=== PATIENT | female | born 1980 | race African-American/Black ===

== ENCOUNTER 2023-04-23 12:20 | Emergency (ER) | payer OTHER, SELFPAY ==
[2023-04-23 12:37] VITALS: BP 121/80
[2023-04-23 13:09] LABS: Urine Albumin Trace (Neg - Trace); Urine Bilirubin 1+ (Negative); Urine Character Slightly Cloudy (Clear); Urine Color Yellow; Urine Glucose Negative (Negative); Urine Ketone 1+ (Negative); Urine Leukocyte Trace (Negative); Urine Nitrite Negative (Negative); Urine Occult Blood 4+ (Negative); Urine Specific Gravity 1.015 (<1.030); Urine Urobilinogen 1+ (Neg - 1+)
[2023-04-23 13:10] LABS: % Basophils 0.1 % (0-2); % Eosinophils 0.1 % (0-6); % Immature Granulocytes 0.3 % (0-0.5); % Lymphocytes 5.5 % (20.5-51.1); % Monocytes 3.1 % (1.7-9.3); % Neutrophils 90.9 % (42.2-75.2); Absolute Lymphocytes 0.7 10^3/uL (1.2-3.4); Absolute Monocytes 0.4 10^3/uL (0.1-0.6); Absolute Neutrophils 12.2 10^3/uL (1.4-6.5); Hematocrit 36.6 % (37.0-47.0); Hemoglobin 12.3 g/dL (12.0-16.0); Mean Corp Hgb Conc. 33.6 g/dL (33.0-37.0); Mean Corpuscular Hgb 27.3 pg (27.0-31.0); Mean Corpuscular Volume 81.2 fL (81.0-99.0); Mean Platelet Volume 9.5 fL (7.4-10.4); Nucleated Red Blood Cells % 0 %; Platelet Count 333 10^3/uL (130-400); Red Blood Cell Count 4.51 10^6/uL (4.20-5.40); Red Cell Dist. Width 15.9 % (11.5-14.5); White Blood Cell Count 13.5 10^3/uL (4.8-10.8)
[2023-04-23] MEDS: ZOFRAN 4 MG IV ×2 (13:14→14:12)
[2023-04-23] MEDS: NSS 1000 IV (13:16)
[2023-04-23 13:18] LABS: Urine Mucus Few; Urine Red Blood Cell 40-50 /HPF (0-2); Urine Squamous Cell >30 /LPF (Few)
[2023-04-23 13:31] LABS: HCG, Serum Qualitative Screen Negative
[2023-04-23 13:32] LABS: Lactic Acid 0.8 mmol/L (0.7-2.0)
[2023-04-23 13:33] LABS: ALT (SGPT) 84 U/L (0-35); AST (SGOT) 72 U/L (14-36); Albumin 4.4 g/dl (3.5-5.0); Alkaline Phosphatase 133 U/L (38-126); Blood Urea Nitrogen 9 mg/dl (7-17); Calcium 9.1 mg/dl (8.4-10.2); Carbon Dioxide 24 mmol/L (22-30); Chloride 102 mmol/L (98-107); Glucose 107 mg/dl (70-99); Potassium 3.3 mmol/L (3.5-5.1); Sodium 133 mmol/L (135-145); Total Bilirubin 1.2 mg/dl (0.2-1.3); Total Protein 7.9 g/dl (6.3-8.2); eGFR > 60.00
[2023-04-23 14:00] VITALS: BP 138/86
[2023-04-23 15:00] VITALS: BP 128/77
[2023-04-23 16:00] VITALS: BP 125/89
[2023-04-23] MEDS: ROCEPHIN 1000 MG IV (16:06)
--- NOTE | 2023-04-23 16:51 | ED.GENMED ---
History of Present Illness
General
Chief Complaint: Urinary Symptoms
Source: patient
Exam Limitations: none
Time Seen by Provider: 04/23/23 12:43
Travel History
Have you had any contact with someone who has COVID-19?: No
Do you have any symptoms of coronavirus? Fever > 100 degrees, chills, cough, shortness of breath, sore throat, loss of taste or smell, muscle aches, or headache?: No
History of Present Illness
History of Present Illness:
This is a 42yo who was diagnosed with a UTI yesterday. pt states that she was given bactrim and after taking a dose started vomiting. she worries she had a reaction to bactrim. she reports fevers. no diarrhea. urinary sx's seem a bit better but does
have mild L>R flank pain.
Past History
Past History
ED Past Medical History: Other (anemia, pancreatic cyst, fibromyalgia)
ED Past Surgical History: Cholecystectomy and Orthopedic
Phy Exam
Physical Exam
Physical Exam:
CONSTITUTIONAL Patient alert and oriented to person, place and time. Well-appearing. Vital signs reviewed.
HEAD atraumatic, normocephalic.
EYES eyelids normal to inspection, Pupils equally round and reactive to light, Extraocular muscles intact, Conjunctiva normal, Sclera normal.
NECK normal range of motion, Trachea midline, no jugular venous distention.
RESPIRATORY CHEST No respiratory distress noted, Chest expansion equal, Bilateral breath sounds clear.
CARDIOVASCULAR regular rate and rhythm, Heart sounds normal.
ABDOMEN abdomen nontender, Bowel sounds normal. No distention.
BACK normal inspection, no obvious deformities, scant tenderness with CVA percussion b/l
UPPER EXTREMITY range of motion normal, Motor strength normal, no cyanosis, no edema.
LOWER EXTREMITY range of motion normal, Motor strength normal, no cyanosis, no edema.
NEURO Speech normal, No focal motor deficits, [place] coma scale 15, Memory normal, Cranial Nerves intact to screening exam.
SKIN skin warm, dry, and normal in color.
PSYCHIATRIC patient oriented to person place and time, Normal affect.
Course
Orders/Labs/Results
Orders:
Orders
04/23/23 12:53
Complete Blood Count/With Diff Urgent
Comprehensive Metabolic Panel Urgent
HCG, Serum Qualitative Screen Urgent
Comment: ADD ON
Lactic Acid Q4H
Comment: CANCEL 2nd LACTIC ACID IF 1st LACTIC ACID IS LESS THAN 2
Blood Culture Q30M
LEMU[facility] Source: Blood/Venous
Specimen Description:
04/23/23 13:01
Urinalysis Reflex To Culture Urgent
Date Specimen was Collected: 04/23/23
Time Specimen was Collected: 12:49
Urine Microscopic Reflex Cult Urgent
04/23/23 13:06
CT Abd/pel Without Iv Or Oral Urgent
Comment:
Reason For Exam: L flank pain, fever
0.9% Sodium Chloride 1000 ml [Nss] 1,000 ml IV BOLUS
Ondansetron Injectable [Zofran] 4 mg IV NOW STA
04/23/23 13:12
Add On- LAB Urgent
Tests Added?: hcg
04/23/23 13:13
Acetaminophen [Tylenol] 1,000 mg .ROUTE .STK-MED ONE
04/23/23 13:39
Acetaminophen [Tylenol] 1,000 mg PO NOW STA
04/23/23 14:10
Ondansetron Injectable [Zofran] 4 mg .ROUTE .STK-MED ONE
04/23/23 14:12
Ondansetron Injectable [Zofran] 4 mg IV NOW STA
04/23/23 14:15
Blood Culture Q30M
LEMUEL Source: Blood/Venous
Specimen Description:
04/23/23 15:11
CefTRIAXone [Rocephin] 1,000 mg IV NOW STA
04/23/23 16:45
Lactic Acid Q4H
Comment: CANCEL 2nd LACTIC ACID IF 1st LACTIC ACID IS LESS THAN 2
Abnormal Lab Results
04/23/23 04/23/23
12:53 13:01
WBC 13.5 H 10^3/uL
(4.8-10.8)
Hct 36.6 L %
(37.0-47.0)
RDW 15.9 H %
(11.5-14.5)
Absolute Neuts (auto) 12.2 H 10^3/uL
(1.4-6.5)
Absolute Lymphs (auto) 0.7 L 10^3/uL
(1.2-3.4)
Neutrophils % 90.9 H %
(42.2-75.2)
Lymphocytes % 5.5 L %
(20.5-51.1)
Sodium 133 L mmol/L
(135-145)
Potassium 3.3 L mmol/L
(3.5-5.1)
Glucose 107 H mg/dl
(70-99)
AST 72 H U/L
(14-36)
ALT 84 H U/L
(0-35)
Alkaline Phosphatase 133 H U/L
(38-126)
Urine Ketones 1+ A
(Negative)
Ur Occult Blood Reflex 4+ A
(Negative)
Urine Bilirubin 1+ A
(Negative)
Leukocyte Esterase Rfl Trace A
(Negative)
Urine RBC 40-50 A /HPF
(0-2)
04/23/23 12:53
04/23/23 12:53
Vital Signs
Initial and Last Documented VS:
Initial Vital Signs
Temp Pulse Resp BP Pulse Ox
101.5 F H 109 18 121/80 100
04/23/23 12:37 04/23/23 12:37 04/23/23 12:37 04/23/23 12:37 04/23/23 12:37
Last Documented Vital Signs
Temp Pulse Resp BP Pulse Ox
101.5 F H 101 20 128/77 98
04/23/23 12:37 04/23/23 15:00 04/23/23 15:00 04/23/23 15:00 04/23/23 15:00
MDM/Problems Addressed
Differential Diagnosis Includes:
Infected kidney stone, pyelonephritis, medication reaction
MDM/Problems Addressed:
Vomiting, pyelonephritis
*Radiology
Radiology exam reviewed: preliminary read by ED provider (no free air noted) and radiology read reviewed
*Pulse Oximetry
Patient hypoxic: no
*Critical Care Note
Total Time (30-74mins, 75-104mins- exclusive of procedures): Not Applicable
Data Reviewed
Source: patient
Prescriptions/Medications Considered But Not Given:
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
Patient Management
Escalation/DeEscalation of care consider admission/obs:
42-year-old female who was started on Bactrim yesterday. Now with fever and vomiting. Suspect pyelonephritis. Does feel a little bit better. CT shows no obstruction. Given IV fluids. 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
management
ED Attending Note
-
Portions of this chart may have been created with voice recognition software.� Occasional wrong word or��sound alike� substitutions may have occurred due to the inherent limitations of voice recognition software.
Discharge Plan
Departure
Patient Disposition: Home (Routine Discharge)
Date of Disposition: 04/23/23
Time of Disposition: 16:59
Patient with high blood pressure during this ER visit?: No
Discharge Problem:
Pyelonephritis
Instructions: Kidney Infection
Prescriptions:
New
cefuroxime axetil 500 mg tablet
500 mg PO BID 7 Days Qty: 14 0RF
ondansetron 4 mg tablet,disintegrating
4 mg PO TID PRN (Reason: nausea and vomiting) Qty: 15 0RF
Referrals:
UNKNOWN - PT DOES,NOT KNOW [Family Provider] -
Activity Restrictions/Additional Instructions:
Please drink plenty fluids. Please see your doctor in the next few days for return to [facility] for intractable vomiting, persistent fevers, weakness of any kind, lightheadedness or any other concerns.
Interventions
Interventions:
*General Assessment Last Done: 04/23/23 12:37
*ED COVID-19 Vaccine History Last Done: 04/23/23 12:37
[2023-04-23] MEDS: KCL ELIXIR 40 MEQ PO (17:19)
[2023-04-23 17:54] VITALS: BP 114/59
== END 2023-04-23 17:55 | disposition home or self-care (01) ==
LOC: EMR 12:20
PROVIDERS: EMERGENCY PHYSICIAN Emergency Medicine
DX: N12 Tubulo-interstitial nephritis, not specified as acute or chronic (principal)
CPT/HCPCS: 99284; 96374; 96375; 96361; 96376; 74176; 80053; 81003; 81015; 83605; 84703; 85025; 87040

== ENCOUNTER 2023-05-30 11:12 | Emergency (ER) | payer OTHER, SELFPAY ==
[2023-05-30 11:31] VITALS: BP 114/82
[2023-05-30 11:55] LABS: % Basophils 0.5 % (0-2); % Eosinophils 0.9 % (0-6); % Immature Granulocytes 0.6 % (0-0.5); % Lymphocytes 20.4 % (20.5-51.1); % Monocytes 4.6 % (1.7-9.3); Absolute Eosinophils 0.1 10^3/uL (0-0.7); Absolute Immature Granulocytes 0.1 10^3/uL (0-0.05); Absolute Lymphocytes 1.8 10^3/uL (1.2-3.4); Absolute Monocytes 0.4 10^3/uL (0.1-0.6); Absolute Neutrophils 6.5 10^3/uL (1.4-6.5); Hematocrit 36.3 % (37.0-47.0); Hemoglobin 12.2 g/dL (12.0-16.0); Mean Corp Hgb Conc. 33.6 g/dL (33.0-37.0); Mean Corpuscular Hgb 27.1 pg (27.0-31.0); Mean Corpuscular Volume 80.5 fL (81.0-99.0); Mean Platelet Volume 9.7 fL (7.4-10.4); Nucleated Red Blood Cells % 0 %; Platelet Count 340 10^3/uL (130-400); Red Blood Cell Count 4.51 10^6/uL (4.20-5.40); White Blood Cell Count 8.8 10^3/uL (4.8-10.8)
[2023-05-30 11:58] LABS: Urine Albumin Negative (Neg - Trace); Urine Bilirubin Negative (Negative); Urine Character Clear (Clear); Urine Color Yellow; Urine Glucose Negative (Negative); Urine Ketone Negative (Negative); Urine Leukocyte Negative (Negative); Urine Nitrite Negative (Negative); Urine Occult Blood Negative (Negative); Urine Urobilinogen Negative (Neg - 1+)
[2023-05-30 12:39] LABS: ALT (SGPT) 23 U/L (0-35); AST (SGOT) 23 U/L (14-36); Albumin 4.2 g/dl (3.5-5.0); Alkaline Phosphatase 115 U/L (38-126); Blood Urea Nitrogen 12 mg/dl (7-17); Calcium 9.8 mg/dl (8.4-10.2); Carbon Dioxide 24 mmol/L (22-30); Chloride 107 mmol/L (98-107); Glucose 87 mg/dl (70-99); Sodium 137 mmol/L (135-145); Total Bilirubin 0.7 mg/dl (0.2-1.3); Total Protein 7.4 g/dl (6.3-8.2); eGFR > 60.00
--- NOTE | 2023-05-30 13:55 | ED.GENMED ---
History of Present Illness
General
Chief Complaint: Back Pain
Source: patient
Exam Limitations: none
Time Seen by Provider: 05/30/23 13:55
Nursing documentation reviewed up to this point in time: agreed with
Travel History
Have you had any contact with someone who has COVID-19?: No
Do you have any symptoms of coronavirus? Fever > 100 degrees, chills, cough, shortness of breath, sore throat, loss of taste or smell, muscle aches, or headache?: No
History of Present Illness
History of Present Illness:
42-year-old female with history of fibromyalgia, GERD presents stating she's had pain in the mid to lower back, both flanks for past 3 weeks. Denies overuse or injury. Denies CP, SOB, has had abdominal discomfort and bloating, nausea off and on, hx
of GERD and has been on PPI in the past but does not like to take medicines so she uses teas, probiotics, etc if needed.
Pt had neg CT scan abd pelvis without po or IV contrast at last visit 04/23/[address] scan WITH IV contrast for her abdominal symptoms.
Past History
Past History
ED Past Medical History: GERD and Other (anemia, pancreatic cyst, fibromyalgia)
ED Past Surgical History: Cholecystectomy and Orthopedic
Social History
Tobacco: Non-smoker
Alcohol: None
Personal:
Living: with family
Employment: Not employed
Review of Systems
Review of Systems
Allergies reviewed?: Yes
All Other Systems: ROS reviewed and negative except as documented in HPI and ROS
Constitutional: Denies fever
Respiratory: Denies trouble breathing
Cardiac: Denies chest pain
ABD/GI: Reports abdominal pain and nausea; Denies vomiting, diarrhea, bloody stools, black stools or anorexia
: Denies dysuria, frequency, difficulty voiding or urgency
Musculoskeletal: Reports back pain
Skin: Reports no symptoms
Neurological: Reports no symptoms
Phy Exam
Physical Exam
Physical Exam:
GENERAL: No acute distress. A&Ox3.
CONSTITUTIONAL: Afebrile.
RESPIRATORY: Regular respirations, nonlabored, lungs clear.
CARDIOVASCULAR: Regular rate and rhythm, no murmurs, no rubs.
GI: Soft, obese, generally tender, no guarding, normal BS
MUSCULOSKELETAL: Tender bilateral upper lumbar and lower thoracic ST. Rotation of torso while standing reproduces the back pain. Bending forward reproduces the back pain. Moves with ease. Well perfused. No edema
SKIN: Warm, dry, normal
PSYCH: Normal mood and affect. Well kept, interactive and appropriate
NEUROLOGIC: Awake, alert and oriented. No focal neurological deficits
Course
Orders/Labs/Results
Orders:
Orders
05/30/23 11:41
Complete Blood Count/With Diff Urgent
Comprehensive Metabolic Panel Urgent
HCG, Serum Qualitative Screen Urgent
Comment: SERUM HCG QUALITATIVE ADDED ON BY FLOOR 3PM 05-30-23
Urinalysis Reflex To Culture Urgent
Date Specimen was Collected: 05/30/23
Time Specimen was Collected: 11:32
05/30/23 14:38
CT Abd/pelvis W Iv Cont Urgent
Comment:
Reason For Exam: abdominal bloating, general pain.
05/30/23 14:56
Add On- LAB Urgent
Tests Added?: serum hcg qualitative
Abnormal Lab Results
05/30/23
11:41
Hct 36.3 L %
(37.0-47.0)
MCV 80.5 L fL
(81.0-99.0)
RDW 16.0 H %
(11.5-14.5)
Abs Immat Gran (auto) 0.1 H 10^3/uL
(0-0.05)
Immature Gran % 0.6 H %
(0-0.5)
Lymphocytes % 20.4 L %
(20.5-51.1)
05/30/23 11:41
05/30/23 11:41
Vital Signs
Initial and Last Documented VS:
Initial Vital Signs
Temp Pulse Resp BP Pulse Ox
98.2 F 70 14 114/82 100
05/30/23 11:31 05/30/23 11:31 05/30/23 11:31 05/30/23 11:31 05/30/23 11:31
Last Documented Vital Signs
Temp Pulse Resp BP Pulse Ox
98.2 F 76 15 127/79 100
05/30/23 11:31 05/30/23 17:40 05/30/23 14:00 05/30/23 17:40 05/30/23 11:31
MDM/Problems Addressed
Differential Diagnosis Includes:
musculoskeletal back pain, UTI, pyelonephritis
GERD, constipation, AAA
MDM/Problems Addressed:
42-year-old female with history of fibromyalgia, GERD presents stating she's had pain in the mid to lower back, both flanks for past 3 weeks. Denies overuse or injury. Denies CP, SOB, has had abdominal discomfort and bloating, nausea off and on, hx
of GERD and has been on PPI in the past but does not like to take medicines so she uses teas, probiotics, etc if needed.
Pt had neg CT scan abd pelvis without po or IV contrast at last visit 04/23/[address] scan WITH IV contrast for her abdominal symptoms. Specifically mentions pancreas cyst concern
NAD
1:55 PM
CBC normal
CMP normal
UA negative
5:[address] scan with IV contrast: Radiology report reviewed: IMPRESSION:
1. No CT evidence for an acute process in the abdomen or pelvis.
2. 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 A follow-up abdominal MRI without and with intravenous contrast can be performed on a routine
outpatient basis.
Ct results discussed with pt as well as MRI recommendation. All questions answered
Copy given to pt.
*Critical Care Note
Total Time (30-74mins, 75-104mins- exclusive of procedures): Not Applicable
ED Attending Note
-
Portions of this chart may have been created with voice recognition software.� Occasional wrong word or��sound alike� substitutions may have occurred due to the inherent limitations of voice recognition software.
Discharge Plan
Departure
Patient Disposition: Home (Routine Discharge)
Date of Disposition: 05/30/23
Time of Disposition: 17:08
Patient with high blood pressure during this ER visit?: No
Condition: Good
Discharge Problem:
Musculoskeletal back pain, Abdominal pain
Instructions: Low Back Pain (DC), Abdominal Pain, Adult ED, Musculoskeletal Pain
Prescriptions:
No Action
cefuroxime axetil 500 mg tablet
500 mg PO BID 7 Days Qty: 14 0RF
ondansetron 4 mg tablet,disintegrating
4 mg PO TID PRN (Reason: nausea and vomiting) Qty: 15 0RF
Referrals:
Your, GI doctor [Other] - Next open appointment
Tonia Bashir, DO [Family Provider] - Call in 1-3 days for appt
Activity Restrictions/Additional Instructions:
As we discussed, there is nothing worrisome in your workup here today.
See your GI doctor for the abdominal bloating
Tylenol or Ibuprofen for the back pain as it is most likely musculoskeletal pain/strain
See your Primary doctor or your GI doctor and review your CT results as out pt MRI is recommended within the next few months to further assess your pancreas cyst.
Interventions
Interventions:
*Risk Screen - Suicide Last Done: 05/30/23 11:28
*General Assessment Last Done: 05/30/23 11:28
*Neglect/Abuse Screening Last Done: 05/30/23 11:28
ED- Fall Risk Assessment Last Done: 05/30/23 14:00
*ED COVID-19 Vaccine History Last Done: 05/30/23 13:56
*Nursing Disposition Last Done: 05/30/23 17:40
ED-Musculoskeletal Assessment Last Done: 05/30/23 15:02
Discharge Date and Time
Discharge Date/Time: 05/30/23 17:40
Print Language: MAURITIAN
[2023-05-30 13:56] VITALS: BMI 34.2
[2023-05-30 14:00] VITALS: BP 125/92
[2023-05-30 15:46] LABS: HCG, Serum Qualitative Screen Negative
[2023-05-30 17:38] VITALS: BP 127/79
[2023-05-30 17:40] VITALS: BP 127/79
== END 2023-05-30 17:40 | disposition home or self-care (01) ==
LOC: EMR 11:12
PROVIDERS: Student in an Organized Health Care Education/Training Program; EMERGENCY PHYSICIAN Emergency Medicine; FAMILY PHYSICIAN Family Medicine
DX: M54.50 Low back pain, unspecified (principal); R10.9 Unspecified abdominal pain; M79.7 Fibromyalgia; K21.9 Gastro-esophageal reflux disease without esophagitis; D64.9 Anemia, unspecified; Z90.49 Acquired absence of other specified parts of digestive tract
CPT/HCPCS: 99284; 74177; 80053; 81003; 84703; 85025; Q9967

== ENCOUNTER 2024-07-25 18:08 | Emergency (ER) | payer OTHER, SELFPAY ==
[2024-07-25 18:13] VITALS: BP 136/83
[2024-07-25 18:35] LABS: % Basophils 0.4 % (0-2); % Immature Granulocytes 0.4 % (0-0.5); % Lymphocytes 22.1 % (20.5-51.1); % Monocytes 5.8 % (1.7-9.3); % Neutrophils 70.3 % (42.2-75.2); Absolute Eosinophils 0.1 10^3/uL (0-0.7); Absolute Lymphocytes 2.1 10^3/uL (1.2-3.4); Absolute Monocytes 0.6 10^3/uL (0.1-0.6); Absolute Neutrophils 6.8 10^3/uL (1.4-6.5); Hematocrit 39.8 % (37.0-47.0); Hemoglobin 12.9 g/dL (12.0-16.0); Mean Corp Hgb Conc. 32.4 g/dL (33.0-37.0); Mean Corpuscular Hgb 27.6 pg (27.0-31.0); Mean Corpuscular Volume 85.2 fL (81.0-99.0); Mean Platelet Volume 9.3 fL (7.4-10.4); Nucleated Red Blood Cells % 0 %; Platelet Count 298 10^3/uL (130-400); Red Blood Cell Count 4.67 10^6/uL (4.20-5.40); Red Cell Dist. Width 15.9 % (11.5-14.5); White Blood Cell Count 9.7 10^3/uL (4.8-10.8)
[2024-07-25 18:47] LABS: HCG, Serum Qualitative Screen Negative
[2024-07-25 18:50] LABS: ALT (SGPT) 27 U/L (0-35); AST (SGOT) 20 U/L (14-36); Albumin 4.5 g/dl (3.5-5.0); Alkaline Phosphatase 108 U/L (38-126); Blood Urea Nitrogen 9 mg/dl (7-17); Calcium 9.7 mg/dl (8.4-10.2); Carbon Dioxide 25 mmol/L (22-30); Chloride 110 mmol/L (98-107); Glucose 76 mg/dl (70-99); Lipase 89 U/L (23-300); Potassium 3.7 mmol/L (3.5-5.1); Sodium 141 mmol/L (135-145); Total Bilirubin 0.7 mg/dl (0.2-1.3); Total Protein 7.8 g/dl (6.3-8.2); eGFR > 60.00
[2024-07-25] MEDS: TORADOL 15 MG IV (20:30)
[2024-07-25] MEDS: PEPCID 20 MG IV (20:30)
[2024-07-25] MEDS: ZOFRAN 4 MG IV (20:31)
[2024-07-25 21:32] LABS: Urine Albumin 2+ (Neg - Trace); Urine Bilirubin Negative (Negative); Urine Character Clear (Clear); Urine Color Yellow; Urine Glucose Negative (Negative); Urine Ketone 2+ (Negative); Urine Leukocyte Negative (Negative); Urine Nitrite Negative (Negative); Urine Occult Blood Negative (Negative); Urine Urobilinogen Negative (Neg - 1+)
[2024-07-25 21:40] LABS: Urine Squamous Cell >30 /LPF (Few)
[2024-07-25 21:41] LABS: Urine Bacteria Few (Negative); Urine Red Blood Cell 0-2 /HPF (0-2); Urine White Cell 0-2 /HPF (0-5)
[2024-07-25 22:09] VITALS: BP 132/86
--- NOTE | 2024-07-25 22:42 | ED.GENMED ---
History of Present Illness
General
Chief Complaint: Abdominal Pain
Source: patient
Exam Limitations: none
Time Seen by Provider: 07/25/24 19:44
Nursing documentation reviewed up to this point in time: agreed with
History of Present Illness
History of Present Illness:
The patient is a 44-year-old female presenting with abdominal pain. She reports experiencing nausea and diarrhea over the last few weeks, predominantly after eating, but without significant tiredness. Pain onset occurred yesterday with sharp,
intermittent pain located on the right side of the abdomen, persisting throughout today without improvement. She denies fever but describes a loss of appetite and persistent nausea exacerbated by eating. The patients bowel movements have been soft
but not classified as diarrhea. Patient denies any dysuria, abnormal vaginal bleeding or discharge. She denies any associated chest pain, shortness of breath, or flank pain.
She feels the pain was exacerbated with certain movements. She has not had any episodes of vomiting.
Patient has noticed some intermittent diarrhea recently although she denies any recent antibiotic use, or undercooked seafood. No known sick contacts
Past History
Past History
ED Past Medical History: GERD and Other (anemia, pancreatic cyst, fibromyalgia)
ED Past Surgical History: Cholecystectomy and Orthopedic
Social History
Tobacco: Non-smoker
Alcohol: None
Personal:
Living: with family
Employment: Not employed
Review of Systems
Review of Systems
Allergies reviewed?: Yes
All Other Systems: ROS reviewed and negative except as documented in HPI and ROS
Phy Exam
Physical Exam
Physical Exam:
Vitals: Mildly hypertensive, otherwise vital signs stable. Afebrile
General: Patient is well appearing, no acute distress. Nontoxic appearing
Skin: Warm and dry, no rashes or lesions
Head: Normocephalic, atraumatic
Eyes: Sclera nonicteric. EOMs intact. No nystagmus.
Throat: Protecting airway
Neck: Normal ROM, no cervical spine tenderness, no meningismus
Cardiac: Regular rate and rhythm, no murmurs.
Pulm: Normal respiratory effort, no wheezes, rales, rhonchi heard on exam
.
Abdomen: Abdomen soft. Mild tenderness in right mid abdomen. No rebound tenderness or guarding. No palpable masses.
Extremities: No evidence of cyanosis or edema
Neuro: AAOx3. Grossly intact.
Psychiatric: Normal affect.
Course
Orders/Labs/Results
Orders:
Orders
07/25/24 18:16
Test Result ONCE
07/25/24 18:24
Complete Blood Count/With Diff Urgent
Comprehensive Metabolic Panel Urgent
HCG, Serum Qualitative Screen Urgent
Lipase Urgent
07/25/24 19:57
Electrocardiogram (*1) Urgent
Reason for Study: Abdominal Pain
EKG- Treatment ONCE
Famotidine [Pepcid] 20 mg IV NOW STA
Ketorolac [Toradol] 15 mg IV NOW STA
Ondansetron Injectable [Zofran] 4 mg IV NOW STA
07/25/24 19:58
CT Abd/pelvis W Iv Cont Urgent
Comment:
Reason For Exam: RLQ/ Right mid abdomen pain
07/25/24 21:25
Urinalysis Reflex To Culture Urgent
Date Specimen was Collected: 07/25/24
Time Specimen was Collected: 21:24
Urine Microscopic Reflex Cult Urgent
Abnormal Lab Results
07/25/24 07/25/24
18:24 21:25
MCHC 32.4 L g/dL
(33.0-37.0)
RDW 15.9 H %
(11.5-14.5)
Absolute Neuts (auto) 6.8 H 10^3/uL
(1.4-6.5)
Chloride 110 H mmol/L
(98-107)
Urine Ketones 2+ A
(Negative)
Urine Bacteria (Reflex) Few A
(Negative)
Urine Albumin (Reflex) 2+ A
(Neg - Trace)
07/25/24 18:24
07/25/24 18:24
Vital Signs
Initial and Last Documented VS:
Initial Vital Signs
Temp Pulse Resp BP Pulse Ox
98.0 F 91 16 136/83 100
07/25/24 18:13 07/25/24 18:13 07/25/24 18:13 07/25/24 18:13 07/25/24 18:13
Last Documented Vital Signs
Temp Pulse Resp BP Pulse Ox
98.0 F 74 18 132/86 98
07/25/24 18:13 07/25/24 22:09 07/25/24 22:09 07/25/24 22:09 07/25/24 22:42
MDM/Problems Addressed
Differential Diagnosis Includes:
Not limited to: Gastritis, constipation, appendicitis, mesenteric adenitis, cystitis, pyelonephritis,
MDM/Problems Addressed:
44 y.o F who presents to the emergency department with a few weeks of intermittent diarrhea now with right sided abdominal pain. Symptoms not associated with fever or vomiting however patient has felt nauseous. No risk factor for bacterial diarrhea.
No urinary symptoms. She has stable vital signs on arrival and is afebrile. Physical exam as above. Abdomen soft with mild tenderness in right mid/RLQ without rebound tenderness or guarding. Labs obtained prior to my evaluation. CBC and chemistry
without clincially significant abnormalities. Will treat symptomatically and obtain UA and check CT scan abdomen/pelvis.
Update: urine does not appear infected. CT scan reveals no acute abnormalities. Appendix appears normal. There was a cyst noted on patient's pancreas which she is aware of however did recommend outpatient MRI for better evaluation. Patient was
provided copy of CT scan report.
Ultimately�workup in ED unremarkable. Patient remains well and nontoxic appearing. No evidence of acute infectious intra-abdominal process today. She was unable to provide stool sample in emergency department today. Feel stable for discharge
home with primary care follow-up. She may require GI follow-up if symptoms persist. Strict return precaution discussed. Patient comfortable with plan.
Chronic conditions affecting care:
N/A
Acute Exacerbation and/or Progression of Chronic Illness:
N/A
*Radiology
Radiology exam reviewed: radiology read reviewed
*Pulse Oximetry
SaO2: 98
Oxygen Mode of Delivery: Room air
Patient hypoxic: no
*EKG
Interpreted by ED Provider?: Yes
EKG Intrepretation Date: 07/25/24
Interpretation: abnormal
Comparison EKG: no comparison EKG present
Heart Rate: 79
Rate: normal
Rhythm: sinus
[place]: normal axis
Interval: normal QT interval
QRS Pattern: normal QRS
Ischemia: non-specific ST changes
*Almond Huller Interpretation
Rate: Almond Huller- N/A
*Critical Care Note
Total Time (30-74mins, 75-104mins- exclusive of procedures): Not Applicable
Patient Management
Escalation/DeEscalation of care consider admission/obs:
Admit not indicated
ED Attending Note
-
Portions of this chart may have been created with voice recognition software.� Occasional wrong word or��sound alike� substitutions may have occurred due to the inherent limitations of voice recognition software.
Discharge Plan
Departure
Patient Disposition: Home (Routine Discharge)
Date of Disposition: 07/25/24
Time of Disposition: 21:58
Patient with high blood pressure during this ER visit?: Yes
Condition: Good
Covid-19: Not Applicable
Discharge Problem:
Abdominal pain, Diarrhea
Instructions: Diarrhea in teens and adults, Abdominal Pain, BLOOD PRESSURE
Prescriptions:
New
ondansetron 4 mg tablet,disintegrating
4 mg PO Q8H PRN (Reason: nausea and vomiting) Qty: 5 0RF
No Action
cefuroxime axetil 500 mg tablet
500 mg PO BID 7 Days Qty: 14 0RF
ondansetron 4 mg tablet,disintegrating
4 mg PO TID PRN (Reason: nausea and vomiting) Qty: 15 0RF
Referrals:
Tonia Bashir DO [Family Provider, Family Practice] - Follow up in 5-7 days
Activity Restrictions/Additional Instructions:
RETURN TO THE EMERGENCY DEPARTMENT ANY FEVER, CHILLS, PERSISTENT LACK OF APPETITE, PERSISTENT/WORSENING ABDOMINAL PAIN, INTRACTABLE NAUSEA/VOMITING, SIGNS OF SIGNIFICANT DEHYDRATION, OR ANY OTHER CONCERNS
- As discussed�your lab work and urine sample showed no acute abnormalities. Your CT scan showed no evidence of acute intra-abdominal infection. There was however a cyst noted on your pancreas which you should have followed up with a dedicated MRI.
- It is important stay well-hydrated. Get plenty of rest. I would recommend a bland diet over the next few days and slowly advance as tolerated. You can take Zofran as needed for persistent nausea.
- Follow-up with primary care for further evaluation/management to ensure that symptoms are improving
Monitor your symptoms closely and return to the emergency department with any acute worsening/new symptoms or any other concerns
Interventions
Interventions:
*Risk Screen - Suicide Last Done: 07/25/24 19:10
*General Assessment Last Done: 07/25/24 19:11
*Neglect/Abuse Screening Last Done: 07/25/24 19:10
*ED- Fall Risk Assessment Last Done: 07/25/24 19:10
*Nursing Disposition Last Done: 07/25/24 22:23
CY-Wqgchl-Llqnecnarg Assessment Last Done: 07/25/24 19:10
Discharge Date and Time
Discharge Date/Time: 07/25/24 22:24
Print Language: MOHAWK
== END 2024-07-25 22:24 | disposition home or self-care (01) ==
LOC: EMR 18:08
PROVIDERS: Physician Assistant; Student in an Organized Health Care Education/Training Program; EMERGENCY PHYSICIAN Emergency Medicine; FAMILY PHYSICIAN Family Medicine
DX: R10.31 Right lower quadrant pain (principal); R19.7 Diarrhea, unspecified; K21.9 Gastro-esophageal reflux disease without esophagitis; D64.9 Anemia, unspecified; M79.7 Fibromyalgia; Z90.49 Acquired absence of other specified parts of digestive tract
CPT/HCPCS: 99284; 74177; 80053; 81003; 81015; 83690; 84703; 85025; 93005; Q9967